=== PATIENT | female | born 1965 | race Caucasian/White ===

== ENCOUNTER 2017-05-15 14:51 | Inpatient (IN) ==
[2017-05-15] MEDS ORDERED: NS 1,000 ML IV ONE (15:20)
[2017-05-15 15:24] LABS: MANUAL DIFF NEEDED? NO
[2017-05-15 15:27] LABS: BASO% 0.6 % (0.0-0.8); EOS# 0.11 X1000 (0.0-0.7); EOS% 2.2 % (0.0-10.0); HEMATOCRIT 39.6 % (37.0-47.0); IMM GRAN# 0.01 X1000 (0.0-0.04); IMM GRAN% 0.2 % (0.0-0.5); LYMPH# 2.13 X1000 (1.2-3.4); LYMPH% 42.4 % (20.5-51.1); MCH 29.1 PG (27-31); MCHC 32.8 g/dL (33-37); MCV 88.8 FL (81-99); MONO# 0.44 X1000 (0.11-0.59); MONO% 8.8 % (1.7-9.3); MPV 11.4 FL (7.4-10.4); NEUT% 45.8 % (42.2-75.2); PLT 216 X1000 (130-400); RBC 4.46 XMIL (4.2-5.4)
[2017-05-15 15:36] LABS: UR AMPHETAMINES QUAL NONE DETECTED (NONE DETECT); UR BARBITUATES QUAL NONE DETECTED (NONE DETECT); UR BENZODIAZEPIN QUAL NONE DETECTED (NONE DETECT); UR CANNABINOIDS QUAL NONE DETECTED (NONE DETECT); UR COCAINE QUAL NONE DETECTED (NONE DETECT); UR MDMA QUAL NONE DETECTED (NONE DETECT); UR METHADONE QUAL NONE DETECTED (NONE DETECT); UR METHAMPHETAMINE QUAL PRESUMPTIVE POSITIVE (NONE DETECT); UR OPIATES QUAL NONE DETECTED (NONE DETECT); UR OXYCODONE QUAL NONE DETECTED (NONE DETECT); UR PCP QUAL NONE DETECTED (NONE DETECT); UR TCA QUAL NONE DETECTED (NONE DETECT)
[2017-05-15 15:52] LABS: AGAP 10; ALBUMIN 3.7 g/dL (3.5-5.0); ALKALINE PHOSPHATASE 88 U/L (32-104); BILIRUBIN URINE NEGATIVE (NEGATIVE); BLOOD URINE 1+ (NEGATIVE); BUN 7 mg/dL (8-22); CALCIUM 9.2 mg/dL (8.8-10.2); CHLORIDE 108 mmol/L (98-107); CK PROFILE 98 U/L (24-173); CLARITY CLEAR (CLEAR); COLOR YELLOW; COSMO 282; GLUCOSE URINE NEGATIVE (NEGATIVE); GOT 18 U/L (10-30); GPT 10 U/L (10-36); LEUKOCYTES URINE NEGATIVE (NEGATIVE); NITRITE URINE POSITIVE (NEGATIVE); PROTEIN URINE NEGATIVE (NEGATIVE); SODIUM 143 mmol/L (136-145); SP GRAVITY URINE 1.005; TCO2 25 mmol/L (25-35); UROBILINOGEN URINE NORMAL
[2017-05-15 15:53] LABS: URINE CAST NONE SEEN /LPF; URINE CRYSTAL NONE SEEN /HPF; URINE CULTURE PL NEEDED? YES; URINE EPITHELIAL CELLS <10 /HPF (<10); URINE RBC <10 /HPF (<10); URINE SOURCE CATH; URINE WBC <10 /HPF (<10)
[2017-05-15 15:53] LABS: BE -3.4 mmoll (-3.0-3.0); BLOOD TYPE ARTERIAL; DRAW SITE R BRACHIAL; METHB 0.9 % (0.0-1.5); O2(CT) 15.4 mL/dL (15.0-23.0); PO2(98.6) 148 mmHg (60-100); SAMPLE BLOOD; SAO2 99.5 % (95.0-100.0); THB 11.3 g/dL (11.5-17.4); pH(98.6) 7.27 (7.35-7.45)
[2017-05-15 15:54] LABS: INR 0.96 (0.86-1.15); PROTIME 13.6 Seconds (12.1-15.5)
[2017-05-15 15:55] LABS: PTT PL 36.7 Seconds (22.6-43.9)
[2017-05-15 16:00] LABS: ALLEN TEST NO; MODALITY CANNULA
[2017-05-15 16:02] LABS: PCO2(98.6) 52 mmHg (35-45)
--- NOTE | 2017-05-15 16:03 | Diag Imaging Result Doc PS360 ---
EXAM: CT HEAD W/O CONTRAST TECHNIQUE: Dose reduction protocol was used. INDICATION: AMS COMPARISON: 07/28/2016 FINDINGS: There is no definite acute infarct given the limited sensitivity of CT versus MRI. There is no discrete intracranial mass, mass effect, or intracranial hemorrhage. The surrounding soft tissues and bony structures are essentially unremarkable. IMPRESSION: No evidence of acute intracranial pathology. Electronically signed by Lamberto Celestin 05/15/2017 4:00 PM
[2017-05-15] MEDS ORDERED: SOLU-MEDROL IV ONE (16:04)
[2017-05-15] MEDS ORDERED: ROCEPHIN 1 GM in NS 50 ML IV ONE (16:04)
[2017-05-15] MEDS ORDERED: DUONEB (A & A) INH ONE (16:04)
--- NOTE | 2017-05-15 16:04 | Diag Imaging Result Doc PS360 ---
EXAM: CHEST-1 VIEW INDICATION: AMS TECHNIQUE: One view COMPARISON: 02/29/2016 FINDINGS: The patient is rotated slightly toward the right. The lungs are grossly clear. There is no discrete pleural fluid collection or pneumothorax. The cardiomediastinal silhouette and central vasculature are grossly unremarkable. IMPRESSION: No evidence of acute pathology by plain radiograph. Electronically signed by Lamberto Celestin 05/15/2017 4:02 PM
--- NOTE | 2017-05-15 16:39 | PROVIDER DOCUMENTATION ---
This chart was entered by Betzaida Pepper Scribe, acting as scribe for Prabha Miller MD. HPI-General Adult - General Chief Complaint: Altered Mental Status Stated Complaint: ams Time Seen by Provider: 05/15/17 14:58 Source: patient Unable to obtain history due to:: altered Allergies/Adverse Reactions: Patient Allergies Allergy/AdvReac Type Severity Reaction Status Date / Time No Known Allergies Allergy Verified 03/25/17 20:57 Home Medications: Home Medication List Medication Instructions Recorded Confirmed Last Taken Type Omeprazole [Prilosec] 20 mg PO DAILY #14 capsule 03/25/17 Unknown Rx - History of Present Illness -Gen Adult Nature of Presenting Problems: PT is a 51 y/o F that presents to ED with cc altered mental status. PT can easily be aroused by sternal rub otherwise pt extremely lethargic. PT able to answer questions, but very slow to respond. PT states she took a lot of Klonopin and Neurontin at home. PT knows where she is. Location of Pain/Injury: reports: generalized Quality of Pain: reports: aching Severity: reports: moderate Onset/Duration: reports: 2 days ago (daughter states her hallucinations started 2 days ago.) Timing: reports: still present Context/Activities at Onset: reports: none Modifying Factors: improves with: nothing Associated Symptoms: reports: other (pt has chronic generalized pain). denies: fever/chills, nausea, vomiting Similar Symptoms Previously?: No Recently seen or treated by another doctor?: No Review of Systems - Adult - REVIEW OF SYSTEMS - ADULT ROS:: limited per condition Constitutional: reports: no symptoms reported Eyes: reports: no symptoms reported Ears, Nose, Mouth & Throat: reports: no symptoms reported Cardiovascular: reports: no symptoms reported Respiratory: reports: no symptoms reported Gastrointestinal: reports: no symptoms reported Genitourinary: reports: no symptoms reported Musculoskeletal: reports: other (generalized body aches) Integumentary: reports: no symptoms reported Neurological: reports: no symptoms reported Psychiatric: reports: alcohol/drug dependence (pain meds) Endocrine: reports: no symptoms reported Hematologic/Lymphatic: reports: no symptoms reported Allergic/Immunologic: reports: no symptoms reported All Other Systems: Reviewed and Negative Past History - Adult - PAST MEDICAL HISTORY-ADULT Review of Records: reports: Old Records Reviewed, Nursing Assessment Review, Medications Reviewed Major Childhood Illnesses: reports: denies history Neurological: reports: Seizures/Epilepsy Psychiatric: reports: anxiety - PRIOR SURGERIES/PROCEDURES Surgical/Procedure History: reports: tonsillectomy, reviewed, not pertinent - IMMUNIZATION STATUS Childhood Immunizations: See Nurse Assessment Flu Vaccine: See Nurse Assessment - SOCIAL HISTORY Smoking: cigarettes, greater than 1 pack/day Provider spent 3-5 mins advising pt. on dangers of tobacco.: Discussed manners to quit use, and f/u contacts for add'l counseling. Substance Use: amphetamines Physical Exam-General - PHYSICAL EXAM-ADULT Initial Vital Signs Reviewed: Yes - CONSTITUTIONAL General Appearance: lethargic (easily aroused by sternal rub), slow to respond ( pt responded to all questions asked) - EYES Eyes: PERRL/EOMI, pink conjunctivae - HEAD, EARS, NOSE, MOUTH & THROAT HENMT: normocephalic/atraumatic, moist mucous membranes - NECK Neck: non-tender, full range of motion - RESPIRATORY Respiratory: chest non-tender, lungs clear, normal breath sounds - CARDIOVASCULAR Cardiovascular: normal peripheral pulses, bradycardia (51) - GASTROINTESTINAL (ABDOMEN) Abdominal Exam: normal bowel sounds, non tender, soft - LYMPHATIC Lymphatic: no adenopathy - SKIN Integumentary: normal color, normal turgor, warm/dry - NEUROLOGIC Neurologic: cytotechnologist/histotechnologist II-XII nml as tested, grossly normal - PSYCHIATRIC Psych/Mental Status: other (PT extremely lethargic, slow to respond but able to answer questions) Progress - PLAN OF CARE/RESULTS Progress/Plan/Lab Results: Vital Signs - 8 hr 05/15/17 14:53 05/15/17 15:15 Temperature 97.6 F Pulse Rate 51 L 46 L Respiratory Rate 12 10 L Blood Pressure 85/51 103/055 O2 Sat by Pulse Oximetry 93 L 100 Laboratory Results - last 24 hr 05/15/17 15:05 POC Glucose 74 Orders Category Date Time Status Cardiac Monitoring DIRECTED Care 05/15/17 15:13 Active Cardiac Monitoring DIRECTED Care 05/15/17 15:15 Active Finger Stick Blood Sugar (ED) DIRECTED Care 05/15/17 15:13 Active Finger Stick Blood Sugar (ED) DIRECTED Care 05/15/17 15:15 [address] [place] [facility] Insertion ORDERED Care 05/15/17 15:17 Active Oxygen Therapy- ED Nursing DIRECTED Care 05/15/17 15:13 Active Oxygen Therapy- ED Nursing DIRECTED Care 05/15/17 15:15 Active Saline Loc NOW Care 05/15/17 15:13 Active Saline Loc NOW Care 05/15/17 15:15 Active CHEST-PORTABLE [RAD] Stat Exams 05/15/17 15:[address] HEAD W/O CONTRAST [CT] Stat Exams 05/15/17 15:14 Ordered ABG [RESP] Routine Lab 05/15/17 15:13 Ordered ALCOHOL BLOOD Stat Lab 05/15/17 15:13 Ordered ALCOHOL BLOOD Stat Lab 05/15/17 15:15 Ordered CBC WITH ELECTRONIC DIFF [HEME] Stat Lab 05/15/17 15:13 Ordered CBC WITH ELECTRONIC DIFF [HEME] Stat Lab 05/15/17 15:15 Ordered CK PROFILE [SP CHEM] Stat Lab 05/15/17 15:13 Ordered CK PROFILE [SP CHEM] Stat Lab 05/15/17 15:15 Ordered COMPREHENSIVE METABOLIC PANEL [CHEM] Stat Lab 05/15/17 15:13 Ordered COMPREHENSIVE METABOLIC PANEL [CHEM] Stat Lab 05/15/17 15:[address] Or[address]IME WITH INR PL [COAG] Stat Lab 05/15/17 15:[address]IME WITH INR [address] [COAG] Stat Lab 05/15/17 15:[address] [COAG] Stat Lab 05/15/17 15:[address] [COAG] Stat Lab 05/15/17 15:15 Ordered TROPONIN T Stat Lab 05/15/17 15:13 Ordered TROPONIN T Stat Lab 05/15/17 15:[address] W/POSS RFLX CULT [URINALYSIS] Stat Lab 05/15/17 15:[address] W/POSS RFLX CULT [URINALYSIS] Stat Lab 05/15/17 15:15 Or[address]INE DRUG SCREEN PL Stat Lab 05/15/17 15:13 Uncollected URINE DRUG SCREEN PL Stat Lab 05/15/17 15:15 Ordered 0.9% Sodium Chloride Inj [Ns] 1,000 ml Med 05/15/17 15:20 Active IV 999 mls/hr Pulse Oximetry Stat Oth 05/15/17 15:13 Active Pulse Oximetry Stat Oth 05/15/17 15:15 Active EKG [EKG] Stat Ther 05/15/17 15:13 Ordered EKG [EKG] Stat Ther 05/15/17 15:15 Ordered Result Diagrams: 05/15/17 15:06 05/15/17 15:06 - EKG 1 Time of EKG reading by physician:: 15:27 EKG Read and Signed by:: Prabha Miller EKG Interpretation (*Must complete 3 of following elements*): Abnormal Rate: 47 Rhythm: UNUSUAL P AXIS POSSIBLE ECTOPIC ATRIAL BRADYCARDIA QRS: other (Cannot rule out inferior infarct) - XRAY 1 XRAY Study: Chest Impression: Normal XRAY Interpretation: NO EVIDENCE OF ACUTE PATHOLOGY BY PLAIN RADIOGRAPH - CT/MRI 1 CT Study: Head Impression: Normal CT Results: NO EVIDENCE OF ACUTE INTRACRANIAL PATHOLOGY - CONSULTS/PCP/HOSPITALIST Notification #1 *Consult/PCP/Hospitalist*: Archer Time Discussed: 16:15 Reason/Comments: ADMIT Consult Disposition: Admit Departure - Departure Date of Disposition Decision: 05/15/17 Time of Disposition Decision: 16:37 DIAGNOSIS: Altered mental status, Overdose Disposition: ADMITTED INPATIENT 09 Certified Medical Emergency: Emergent Condition: Stable Referrals and Follow-Ups: None,PCP [Primary Care Provider] - - Critical Care Note This patient required my direct & personal management of CC.: Yes Total Time (mins): 30 Critical Care Statement: This patient required my direct personal management to treat or rule out processes, the absence of which, could potentiallly result in sudden, clinically significant life or limb threatening deterioration. Attestation - Physician/ MARISSA Attestation Patient care was provided by Advanced Practice Provider:: No The physician spent face to face time with patient:: Yes Advanced Practice Provider documentation review:: Supervising physician onsite and consulted in the evaluation and care of this patient. The physician did have a face to face encounter with the patient. This chart was documented by the indicated scribe, (Betzaida Pepper Scribjalen) and accurately reflects the services I performed and decisions made by me, Prabha Miller MD, as attested by the provider's signature.
--- NOTE | 2017-05-15 16:54 | EKG Report ---
Test Performed on : 05/15/2017 3:27:26 PM Test Reason : AMS Blood Pressure : / mmHG Vent. Rate : 047 BPM Atrial Rate : 047 BPM P-R Int : 140 ms QRS Dur : 088 ms QT Int : 514 ms P-R-T Axes : 138 -04 119 degrees QTc Int : 454 ms Unusual P axis, possible ectopic atrial bradycardia. Cannot rule out Inferior infarct (cited on or before 28-JUL-2016) Abnormal ECG When compared with ECG of 28-JUL-2016 18:04, Ectopic atrial rhythm. has replaced Sinus rhythm. Left anterior fascicular block is no longer present Unconfirmed Result
[2017-05-15] MEDS ORDERED: NARCAN IV ONE (16:57)
[2017-05-15 18:11] LABS: BE -4.4 mmoll (-3.0-3.0); BLOOD TYPE ARTERIAL; DRAW SITE R RADIAL; METHB 0.7 % (0.0-1.5); O2(CT) 16.8 mL/dL (15.0-23.0); PO2(98.6) 116 mmHg (60-100); SAMPLE BLOOD; SAO2 99.2 % (95.0-100.0); THB 12.4 g/dL (11.5-17.4); pH(98.6) 7.24 (7.35-7.45)
[2017-05-15 18:13] LABS: ALLEN TEST YES; MODALITY BI PAP
[2017-05-15 18:14] LABS: PCO2(98.6) 55 mmHg (35-45)
[2017-05-16] MEDS: LEVAQUIN PO SCH (16:11)
--- NOTE | 2017-05-16 18:42 | HISTORY AND PHYSICAL ---
CHIEF COMPLAINT: Altered mental status. HISTORY OF PRESENT ILLNESS: This is a 51-year-old female, who presented to the emergency room via family members after being found unresponsive. The daughter states that the patient has been depressed and having hallucinations for 2 days. She stated that the patient did fall just prior to coming to the emergency room. At the time of the interview, the patient does respond to a sternal rub. Otherwise she is lethargic. Reportedly, she did state she took a lot of Klonopin and Neurontin at home. How much and when are unknown. In the emergency room, she was given a DuoNeb treatment along with Narcan and on Rocephin and she has been admitted for further evaluation and treatment. PAST MEDICAL HISTORY: Questionable history of epilepsy, depression, chronic headaches. PAST SURGICAL HISTORY: Cholecystectomy, wisdom tooth removal. SOCIAL HISTORY: She smokes a pack a day. Positive for illicit drugs. ALLERGIES: No known drug allergies. HOME MEDICATIONS: None. REVIEW OF SYSTEMS: Unable to discuss with the patient at present, as she states that she does not want to discuss this. According to the chart, the only complaint was depression. She has had visual and auditory hallucinations for many years, seeing a woman and child. Evidently, she has been having the same hallucination for over 3 years for which she is being followed at the [facility]. PHYSICAL EXAMINATION: GENERAL: This is a 51-year-old female who is sitting in the bed, in no distress. VITAL SIGNS: Blood pressure is 98/49 with a heart rate of 59, respirations are 20, temperature is 98.3 oral with room air saturation 100%. HEENT: Head is normocephalic, atraumatic. Pupils are equal, round, react to light. EOMs are intact. Sclerae anicteric. Mucous membranes are dry. NECK: Supple. Trachea midline. CARDIOVASCULAR: Regular rate and rhythm. S1 and S2 appreciated. PULMONARY: Breath sounds are clear with no increased work of breathing noted. GASTROINTESTINAL: Abdomen is soft, nontender, nondistended with bowel sounds in all 4 quadrants. EXTREMITIES: No clubbing, cyanosis, or edema. Calves are nontender. Pulses are palpable x4. NEUROLOGIC: She is alert and oriented x3. LABS: WBC is 5 with hemoglobin 13, hematocrit 39.6, and platelets of 216. Sodium is 143, potassium 4, BUN 7, creatinine 0.9, with a glucose of 81. Urine drug screen is presumptive positive for methamphetamines. Urine microscopic revealed 1+ blood and positive nitrites with less than 10 microscopic red and white blood cells. Urine culture revealed gram-negative rods. We are waiting for the results. ASSESSMENT AND PLAN: 1. Altered mental status resolving. 2. Overdose, intentional. 3. History of auditory and visual hallucinations. 4. Questionable seizure disorder. 5. Urinary tract infection. PLANS: The patient will be admitted to the ICU. She will be placed on telemetry. We will perform neuro checks and continue with close monitoring. We will have [facility] Godoy evaluate the patient as she continues to state that she is not suicidal. Further treatments pending hospital course. Dictated by MARLEN Delacruz for Ari Zambrano MD cc: MARLEN Delacruz MD
[2017-05-16] MEDS ORDERED: TYLENOL PO PRN (18:56)
[2017-05-16] MEDS: NICODERM PATCH TD SCH (19:38)
[2017-05-17] MEDS: NICODERM PATCH TD SCH (08:44)
[2017-05-17] MEDS: LEVAQUIN PO SCH (08:44)
--- NOTE | 2017-05-17 13:17 | Diag Imaging Result Doc PS360 ---
EXAM: US PELVIC NON-REGISTERED DIETITIAN COMPLETE HISTORY: PAIN TECHNIQUE: Pelvic ultrasound transabdominal COMMENT: The study is technically suboptimal. The uterus is not seen in its entirety but what is seen is normal in appearance. Neither ovary is identified. There is no evidence of free fluid or adnexal masses. Endovaginal scanning was not possible. IMPRESSION: Limited study. No evidence of free fluid. Electronically signed by Fransisco Carvajal 05/17/2017 1:15 PM
--- NOTE | 2017-05-17 17:00 | Diag Imaging Result Doc PS360 ---
US TRANSVAGINAL NON-OB - 05/17/2017 INDICATION: Further evaluation with endovaginal as the transabdominal pelvic ultrasound was limited. TECHNIQUE: Endovaginal exam COMPARISON: Transabdominal pelvic ultrasound from less than two hours ago FINDINGS: There is a uterine fibroid at the anterior fundus. This measures about 2.7 cm. No free fluid. The ovaries are extensively obscured by bowel gas. The patient had great difficulty tolerating the endovaginal exam. IMPRESSION: Uterine fibroid without complication. No acute disease. Electronically signed by Cristofer Bennett 05/17/2017 4:58 PM
[2017-05-17] MEDS ORDERED: AMBIEN PO PRN (19:35)
[2017-05-17] MEDS ORDERED: LACTULOSE PO ONE (19:35)
--- NOTE | 2017-05-18 05:38 | PROGRESS NOTE ---
DATE: 05/17/2017 SUBJECTIVE: Patient seen and examined. She currently is sitting in chair watching television. She is in no respiratory distress. OBJECTIVE: Vital Signs Reviewed: She is afebrile, heart rate is 60s, respiratory rate 20, temp is stable. She is 100% on room air. General: Patient is awake and alert. She is currently in no respiratory distress. She states that she is feeling better. Still having some hallucinations. HEENT: Normocephalic, atraumatic. Neck: Supple. CV: Regular rate. No murmurs. Chest: Clear. Nonlabored. Abdomen: Soft, nondistended. Extremities: Moves all extremities. ASSESSMENT: 1. Altered mental status. Appears to be resolved. 2. Intentional overdose. Trying to get rid of the voices that she was hearing. 3. Auditory and visual hallucinations. 4. Urinary tract infection with gram-negative rods. PLAN: We will continue patient on IV antibiotics today. We will continue in the ICU. As she did have an intentional drug overdose, although, I do not think this was a true suicide attempt. She was simply trying to get the voices to resolve. We will consult in the a.m. if she remains stable. cc: Ari Zambrano MD
[2017-05-18 06:28] LABS: HEMATOCRIT 38.3 % (37.0-47.0); HEMOGLOBIN 12.3 g/dL (12.0-16.0); MCH 29.2 PG (27-31); MCHC 32.1 g/dL (33-37); RBC 4.21 XMIL (4.2-5.4)
[2017-05-18 06:44] LABS: AGAP 8; ALBUMIN 3.1 g/dL (3.5-5.0); ALKALINE PHOSPHATASE 81 U/L (32-104); BUN 15 mg/dL (8-22); CALCIUM 8.9 mg/dL (8.8-10.2); CHLORIDE 102 mmol/L (98-107); COSMO 277; GOT 13 U/L (10-30); GPT 9 U/L (10-36); POTASSIUM 3.9 mmol/L (3.5-5.1); SODIUM 139 mmol/L (136-145); TCO2 29 mmol/L (25-35); TOTAL BILIRUBIN < 0.15 mg/dL (0.20-1.00); TOTAL PROTEIN 6.1 g/dL (6.3-8.3)
[2017-05-18 09:23] VITALS: BP 87/43
[2017-05-18] MEDS: NICODERM PATCH TD SCH (10:27)
[2017-05-18] MEDS: LEVAQUIN PO SCH (10:27)
--- NOTE | 2017-05-19 20:08 | DISCHARGE SUMMARY ---
ADMISSION DATE: 05/15/2017 DISCHARGE DATE: 05/18/2017 DISCHARGE DIAGNOSES: 1. Acute metabolic encephalopathy secondary to drug use. Resolved. 2. Intentional overdose. Patient denies any suicidal or homicidal ideation. 3. Known auditory visual hallucinations. Stable. 4. Questionable history of seizure disorder. Stable. 5. Urinary tract infection, E. coli, sensitive to Levaquin. CONSULTATIONS: [facility]dem[facility] Godoy. PROCEDURES: None. BRIEF HOSPITAL COURSE: The patient is a 51-year-old female, who was admitted as noted in the HPI. Treated in usual fashion. Placed in the ICU secondary to her altered mental status and history of drug use. Thankfully, this resolved as the medication wore off. She is currently awake, alert, oriented. She is in no distress. She denies any suicidal or homicidal ideations. Valdemar Godoy was consulted. They do not think that she needs further inpatient treatment. DISPOSITION: Thirty-five minutes was spent in discharge planning and instructions. The patient will be discharged home on Cipro twice a day for another 5 days. She will follow up outpatient with primary care of her choice. 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 She will follow up outpatient with Psychiatry as well. cc: Ari Zambrano MD
== END 2017-05-18 11:10 | disposition home or self-care (01) ==
LOC: P.ED 14:51 → P.ICU 19:00
PROVIDERS: ATTEND Family Medicine